=== PATIENT | female | born 1965 | race Caucasian/White ===

== ENCOUNTER 2018-10-27 19:54 | Inpatient (IN) ==
[2018-10-27 21:06] LABS: Immature Granulocytes % 0.3 % (0-4); Red Cell Distribution Width 18.3 % (11.5-14.5)
[2018-10-27 21:08] LABS: Basophils # 0.1 K/mcL (0.0-0.2); Basophils % 1.9 %; Eosinophils # 0.2 K/mcL (0.0-0.6); Eosinophils % 2.6 %; Hematocrit 35.7 % (35.3-44.9); Immature Platelets 5.5 % (1.1-6.1); Lymphocytes # 2.2 K/mcL (0.6-4.6); Lymphocytes % 35.5 %; Mean Corpuscular HGB Conc 30.8 g/dL (31.6-35.5); Mean Corpuscular Hemoglobin 27.4 pg (28.0-33.3); Mean Platelet Volume 9.5 fL (9.4-12.4); Monocytes # 0.4 K/mcL (0.0-1.3); Monocytes % 6.8 %; Neutrophils # 3.3 K/mcL (1.6-8.9); Red Blood Count 4.01 M/mcL (3.82-4.97); Segmented Neutrophils % 52.9 %; White Blood Count 6.2 K/mcL (4.3-11.1)
[2018-10-27] MEDS ORDERED: MVI, adult with vitamin K 10 ML in 0.9 % Sodium Chloride 1,000 ML IVC ONE (21:11)
[2018-10-27 21:14] LABS: Platelet Count 32 K/mcL (140-400)
[2018-10-27 21:25] LABS: BUN/Creatinine Ratio 22 (6-26); Blood Urea Nitrogen 11 mg/dL (6-20); Calcium 8.7 mg/dL (8.6-10.3); Carbon Dioxide 25 mEq/L (23-29); Chloride 106 mEq/L (98-107); Glucose 109 mg/dL (70-105); Osmolality,Calculated 298 (280-300); Sodium 144 mEq/L (136-145); eGFR For African Americans > 60 (> 60); eGFR For Non-African Americans > 60 (> 60)
[2018-10-27 22:06] LABS: Bilirubin,Urine Small (Negative); Blood,Urine Negative (Negative); Clarity,Urine Clear (Clear); Glucose,Urine (UA) Normal (Normal); Ketones,Urine 15 mg/dL (Negative); Leukocyte Esterase,Urine Trace (Negative); Nitrite,Urine Negative (Negative); Protein,Urine 30 mg/dL (Neg-Trace); Specific Gravity,Urine > 1.030 (1.010-1.025)
[2018-10-27 22:07] LABS: Amphetamine Screen,Urine Negative ng/mL (Cutoff=1000); Barbiturate Screen,Urine Negative ng/mL (Cutoff=200); Benzodiazepines Screen,Urine Negative ng/mL (Cutoff=200); Cannabinoid Screen,Urine Negative ng/mL (Cutoff = 50); Cocaine Screen,Urine Negative ng/mL (Cutoff= 300); Opiate Screen,Urine Negative ng/mL (Cutoff=300); Phencyclidine Screen,Urine Negative ng/mL (Cutoff=25)
[2018-10-27 22:08] LABS: Platelet Estimate Marked Decrease (Normal)
[2018-10-27 22:09] LABS: Bacteria,Urine Few per hpf (None-Few); Hyaline Casts,Urine None Seen per lpf (None-Few); RBC,Urine 0-3 per hpf (0-3); Squamous Epithelial Cell,Urine Many per lpf (None-Few); WBC,Urine 0-3 per hpf (0-3)
[2018-10-27 22:09] LABS: Anisocytosis 1+ (Not Present)
[2018-10-27 22:14] LABS: Color,Urine Amber (Yellow)
[2018-10-27 22:17] LABS: Acetaminophen < 10 mcg/mL (10-20); Ethanol 444 mg/dL (Less than 10); Salicylate < 2.5 mg/dL (15.0-30.0)
[2018-10-27 22:48] LABS: Mucus,Urine Moderate (Few)
[2018-10-27 22:51] LABS: Alanine Aminotransferase 78 Units/L (7-52); Albumin 3.7 g/dL (3.5-5.7); Albumin/Globulin Ratio 1.1 (1.1-2.2); Alkaline Phosphatase 131 Units/L (34-104); Aspartate Amino Transferase 292 Units/L (13-39); Bilirubin,Direct 1.5 mg/dL (0.0-0.2); Bilirubin,Indirect 1.6 mg/dL (0.0-1.2); Bilirubin,Total 3.1 mg/dL (0.3-1.0); Globulin 3.5 g/dL (2.4-3.5); Total Protein 7.2 g/dL (6.4-8.9)
--- NOTE | 2018-10-27 23:35 | Emergency Department Note ---
Disposition Clinical Impression: Wernicke encephalopathy, Hyperammonemia, Thrombocytopenia Elevated ETOH level Qualifiers: Blood alcohol level: 240 mg/100 ml or more Qualified Code(s): Y90.8 - Blood alcohol level of 240 mg/100 ml or more Disposition: Admitted As Inpatient Time of Disposition: 23:51 General Adult HPI - General Chief complaint: ED Weakness Stated complaint: low iron/anemic/weakness Time Seen by Provider: 10/27/18 20:33 Source: patient Mode of arrival: ambulatory Limitations: no limitations Nursing Notes Reviewed: Yes Vital Signs Reviewed: Yes - History of Present Illness HPI Narrative: 52F with PMHx of HTN and liver disease presents to the ED with her family for worsening confusion, falls, and changes in mood. She was called today by her family physician and told she had "low iron that needs replaced." The patient appears to be confused and asked that she does not know why she is in the emergency Department states she does not wish to be here. Upon review of labs done 3 days ago looks like her liver enzymes are elevated with her AST being 327 and her ALT being 80. She denies drinking more than one to 2 glasses of wine one to 2 times per week. Her family is concerned as her confusion and falls have been seeming to get worse. She denies fever, chills, chest pain, shortness of breath, abdominal pain, nausea and vomiting. Family states it seems as though she lists to her right side. Pain Scale: 6 - Related Data Allergies Allergy/AdvReac Type Severity Reaction Status Date / Time No Known Allergies Allergy Verified 10/27/18 20:17 All systems ED: reviewed and negative except as stated. Review of Systems: As Per HPI Constitutional: Denies: fever, chills, weakness Cardiovascular: Denies: chest pain, palpitations, dyspnea on exertion Respiratory: Denies: cough, dyspnea, wheezes Gastrointestinal: Denies: abdominal pain, nausea, vomiting, diarrhea Genitourinary: Denies: dysuria, hematuria Musculoskeletal: Denies: back pain, neck pain Neurological: Denies: headache Endocrine: Denies: fatigue Past Medical History - Past Medical History Attestation: Yes The following information was validated with the patient. Source: patient Medical history: Reports: hypertension, other Surgical history: Reports: other Psychiatric history: Reports: no psych history - Social History Smoking Status: Never smoker Smokeless Tobacco Status: No Alcohol use: Reports: occasionally Drug use: Reports: none Physical Exam - General Limitations: no limitations General appearance: alert, other (confusion) - Head Head exam: atraumatic, normocephalic - Eye Eye exam: Present: PERRL, EOMI, scleral icterus - Chest Chest inspection: Present: normal inspection. Absent: tenderness, rash - Respiratory Respiratory exam: Present: normal lung sounds bilaterally. Absent: wheezes - Cardiovascular Cardiovascular exam: Present: regular rate, normal rhythm - Abdominal Exam Abdominal exam: Present: soft, Non-Tender. Absent: distention, guarding, rebound, rigidity - Extremities Exam Extremities exam: Present: normal inspection. Absent: tenderness, pedal edema - Neurological Exam Neurological exam: Present: alert, other (generalized confusion and quick mood swings. Ataxia in bilateral heel-forbes test and dysdiadokinesia of both hands) - Psychiatric Psychiatric exam: Present: normal affect, normal mood - Skin Skin exam: Present: warm, dry, intact Course Vital Signs Temperature 98.8 F 10/27/18 20:17 Pulse Rate 93 10/27/18 20:17 Respiratory Rate 20 10/27/18 20:17 Blood Pressure 129/81 10/27/18 20:17 O2 Sat by Pulse Oximetry 94 10/27/18 20:17 Temperature 98.8 F 10/27/18 20:17 Pulse Rate 93 10/27/18 20:17 Respiratory Rate 20 10/27/18 20:17 Blood Pressure 129/81 10/27/18 20:17 O2 Sat by Pulse Oximetry 94 10/27/18 20:17 Oxygen Delivery Oxygen Delivery Room Air Medical Decision Making - [facility] Narrative Medical decision making narrative: Patient presents with generalized confusion and labs suggestive of alcoholic liver disease. We will repeat labs done 3 days ago and had pneumonia, ethanol level and a CT scan of the head to the patient's frequent falls and thrombocytopenia. 2214 - patient's labs are significant for thrombocytopenia of 32, ammonia of 57, and ethanol level of 444. Spoke with her family about the extremely elevated alcohol level and the need for admission for detox and treatment of her elevated ammonia and likely Wernicke's encephalopathy. Patient's family is agreeable with admission at this time. We have paged the admitting hospitalist [phone] - patient has been accepted by Dr. Pineda - Medical Records Medical records reviewed: Yes I reviewed the patient's medical records. - Lab Data Lab results reviewed: Yes I reviewed the patient's lab results. Result diagrams: 10/27/18 20:49 10/27/18 20:49 Lab Results 10/27/18 10/27/18 10/27/18 Range/Units 20:49 20:49 20:49 WBC 6.2 (4.3-11.1) K/mcL RBC 4.01 (3.82-4.97) M/mcL Hgb 11.0 L (11.5-15.4) g/dL Hct 35.7 (35.3-44.9) % MCV 89.0 (83.0-100.0) fL MCH 27.4 L (28.0-33.3) pg MCHC 30.8 L (31.6-35.5) g/dL RDW 18.3 H (11.5-14.5) % Plt Count 32 L (140-400) K/mcL MPV 9.5 (9.4-12.4) fL Immature Gran % 0.3 (0-4) % Seg Neutrophils % 52.9 % Lymphocytes % 35.5 % Monocytes % 6.8 % Eosinophils % 2.6 % Basophils % 1.9 % Neutrophils # 3.3 (1.6-8.9) K/mcL Lymphocytes # 2.2 (0.6-4.6) K/mcL Monocytes # 0.4 (0.0-1.3) K/mcL Eosinophils # 0.2 (0.0-0.6) K/mcL Basophils # 0.1 (0.0-0.2) K/mcL Platelet Estimate Marked Decrease L (Normal) Immature Plt Fraction 5.5 (1.1-6.1) % Anisocytosis 1+ A (Not Present) Sodium 144 (136-145) mEq/L Potassium 4.0 (3.5-5.1) mEq/L Chloride 106 (98-107) mEq/L Carbon Dioxide 25 (23-29) mEq/L BUN 11 (6-20) mg/dL Creatinine 0.49 L (0.60-1.20) mg/dL Est GFR ( Amer) > 60 (> 60) Est GFR (Non-Af Amer) > 60 (> 60) BUN/Creatinine Ratio 22 (6-26) Glucose 109 H (70-105) mg/dL Calculated Osmolality 298 (280-300) Calcium 8.7 (8.6-10.3) mg/dL Total Bilirubin 3.1 H (0.3-1.0) mg/dL Direct Bilirubin 1.5 H (0.0-0.2) mg/dL Indirect Bilirubin 1.6 H (0.0-1.2) mg/dL AST 292 H (13-39) Units/L ALT 78 H (7-52) Units/L Alkaline Phosphatase 131 H (34-104) Units/L Ammonia (16-53) mcmol/L Serum Total Protein 7.2 (6.4-8.9) g/dL Albumin 3.7 (3.5-5.7) g/dL Globulin 3.5 (2.4-3.5) g/dL Albumin/Globulin Ratio 1.1 (1.1-2.2) TSH (0.340-5.600) mcIU/mL Urine Color (Yellow) Urine Clarity (Clear) Urine pH (5.0-8.0) pH Units Ur Specific [place] (1.010-1.025) Urine Protein (Neg-Trace) mg/dL Urine Glucose (UA) (Normal) mg/dL Urine Ketones (Negative) mg/dL Urine Blood (Negative) Urine Nitrite (Negative) Urine Bilirubin (Negative) Urine Urobilinogen (Normal) mg/dL Ur Leukocyte Esterase (Negative) Urine Microscopic RBC (0-3) per hpf Urine Microscopic WBC (0-3) per hpf Ur Squamous Epith Cells (None-Few) per lpf Urine Bacteria (None-Few) per hpf Hyaline Casts (None-Few) per lpf Urine Mucus (Few) Salicylates (15.0-30.0) mg/dL Urine Opiates Screen (Khxmmz=299) ng/mL Ur Buprenorphine Scrn (Cutoff=5) ng/mL Acetaminophen (10-20) mcg/mL Ur Barbiturates Screen (Kflezr=162) ng/mL Ur Phencyclidine Scrn (Cutoff=25) ng/mL Ur Amphetamines Screen (Nxpbzd=5440) ng/mL U Benzodiazepines Scrn (Vdqjhw=046) ng/mL Urine Cocaine Screen (Cutoff= 300) ng/mL U Marijuana (THC) Screen (Cutoff = 50) ng/mL Ur Drug Screen Interp Ethyl Alcohol (Less than 10) mg/dL Blood Type A POSITIVE Antibody Screen NEGATIVE 10/27/18 10/27/18 10/27/18 Range/Units 21:05 21:06 21:29 WBC (4.3-11.1) K/mcL RBC (3.82-4.97) M/mcL Hgb (11.5-15.4) g/dL Hct (35.3-44.9) % MCV (83.0-100.0) fL MCH (28.0-33.3) pg MCHC (31.6-35.5) g/dL RDW (11.5-14.5) % Plt Count (140-400) K/mcL MPV (9.4-12.4) fL Immature Gran % (0-4) % Seg Neutrophils % % Lymphocytes % % Monocytes % % Eosinophils % % Basophils % % Neutrophils # (1.6-8.9) K/mcL Lymphocytes # (0.6-4.6) K/mcL Monocytes # (0.0-1.3) K/mcL Eosinophils # (0.0-0.6) K/mcL Basophils # (0.0-0.2) K/mcL Platelet Estimate (Normal) Immature Plt Fraction (1.1-6.1) % Anisocytosis (Not Present) Sodium (136-145) mEq/L Potassium (3.5-5.1) mEq/L Chloride (98-107) mEq/L Carbon Dioxide (23-29) mEq/L BUN (6-20) mg/dL Creatinine (0.60-1.20) mg/dL Est GFR ( Amer) (> 60) Est GFR (Non-Af Amer) (> 60) BUN/Creatinine Ratio (6-26) Glucose (70-105) mg/dL Calculated Osmolality (280-300) Calcium (8.6-10.3) mg/dL Total Bilirubin (0.3-1.0) mg/dL Direct Bilirubin (0.0-0.2) mg/dL Indirect Bilirubin (0.0-1.2) mg/dL AST (13-39) Units/L ALT (7-52) Units/L Alkaline Phosphatase (34-104) Units/L Ammonia (16-53) mcmol/L Serum Total Protein (6.4-8.9) g/dL Albumin (3.5-5.7) g/dL Globulin (2.4-3.5) g/dL Albumin/Globulin Ratio (1.1-2.2) TSH 1.798 (0.340-5.600) mcIU/mL Urine Color [place] A (Yellow) Urine Clarity Clear (Clear) Urine pH 6.0 (5.0-8.0) pH Units Ur Specific [place] > 1.030 H (1.010-1.025) Urine Protein 30 H (Neg-Trace) mg/dL Urine Glucose (UA) Normal (Normal) mg/dL Urine Ketones 15 H (Negative) mg/dL Urine Blood Negative (Negative) Urine Nitrite Negative (Negative) Urine Bilirubin Small H (Negative) Urine Urobilinogen 2.0 H (Normal) mg/dL Ur Leukocyte Esterase Trace H (Negative) Urine Microscopic RBC 0-3 (0-3) per hpf Urine Microscopic WBC 0-3 (0-3) per hpf Ur Squamous Epith Cells Many H (None-Few) per lpf Urine Bacteria Few (None-Few) per hpf Hyaline Casts None Seen (None-Few) per lpf Urine Mucus Moderate H (Few) Salicylates < 2.5 L (15.0-30.0) mg/dL Urine Opiates Screen (Zzqybx=182) ng/mL Ur Buprenorphine Scrn (Cutoff=5) ng/mL Acetaminophen < 10 L (10-20) mcg/mL Ur Barbiturates Screen (Kipesj=570) ng/mL Ur Phencyclidine Scrn (Cutoff=25) ng/mL Ur Amphetamines Screen (Ppadyb=0578) ng/mL U Benzodiazepines Scrn (Lboedz=450) ng/mL Urine Cocaine Screen (Cutoff= 300) ng/mL U Marijuana (THC) Screen (Cutoff = 50) ng/mL Ur Drug Screen Interp Ethyl Alcohol 444 H (Less than 10) mg/dL Blood Type Antibody Screen 10/27/18 10/27/18 Range/Units 21:29 21:41 WBC (4.3-11.1) K/mcL RBC (3.82-4.97) M/mcL Hgb (11.5-15.4) g/dL Hct (35.3-44.9) % MCV (83.0-100.0) fL MCH (28.0-33.3) pg MCHC (31.6-35.5) g/dL RDW (11.5-14.5) % Plt Count (140-400) K/mcL MPV (9.4-12.4) fL Immature Gran % (0-4) % Seg Neutrophils % % Lymphocytes % % Monocytes % % Eosinophils % % Basophils % % Neutrophils # (1.6-8.9) K/mcL Lymphocytes # (0.6-4.6) K/mcL Monocytes # (0.0-1.3) K/mcL Eosinophils # (0.0-0.6) K/mcL Basophils # (0.0-0.2) K/mcL Platelet Estimate (Normal) Immature Plt Fraction (1.1-6.1) % Anisocytosis (Not Present) Sodium (136-145) mEq/L Potassium (3.5-5.1) mEq/L Chloride (98-107) mEq/L Carbon Dioxide (23-29) mEq/L BUN (6-20) mg/dL Creatinine (0.60-1.20) mg/dL Est GFR ( Amer) (> 60) Est GFR (Non-Af Amer) (> 60) BUN/Creatinine Ratio (6-26) Glucose (70-105) mg/dL Calculated Osmolality (280-300) Calcium (8.6-10.3) mg/dL Total Bilirubin (0.3-1.0) mg/dL Direct Bilirubin (0.0-0.2) mg/dL Indirect Bilirubin (0.0-1.2) mg/dL AST (13-39) Units/L ALT (7-52) Units/L Alkaline Phosphatase (34-104) Units/L Ammonia 57 H (16-53) mcmol/L Serum Total Protein (6.4-8.9) g/dL Albumin (3.5-5.7) g/dL Globulin (2.4-3.5) g/dL Albumin/Globulin Ratio (1.1-2.2) TSH (0.340-5.600) mcIU/mL Urine Color (Yellow) Urine Clarity (Clear) Urine pH (5.0-8.0) pH Units Ur Specific [place] (1.010-1.025) Urine Protein (Neg-Trace) mg/dL Urine Glucose (UA) (Normal) mg/dL Urine Ketones (Negative) mg/dL Urine Blood (Negative) Urine Nitrite (Negative) Urine Bilirubin (Negative) Urine Urobilinogen (Normal) mg/dL Ur Leukocyte Esterase (Negative) Urine Microscopic RBC (0-3) per hpf Urine Microscopic WBC (0-3) per hpf Ur Squamous Epith Cells (None-Few) per lpf Urine Bacteria (None-Few) per hpf Hyaline Casts (None-Few) per lpf Urine Mucus (Few) Salicylates (15.0-30.0) mg/dL Urine Opiates Screen Negative (Bsqppu=861) ng/mL Ur Buprenorphine Scrn Negative (Cutoff=5) ng/mL Acetaminophen (10-20) mcg/mL Ur Barbiturates Screen Negative (Dyavyb=533) ng/mL Ur Phencyclidine Scrn Negative (Cutoff=25) ng/mL Ur Amphetamines Screen Negative (Tdzpre=6794) ng/mL U Benzodiazepines Scrn Negative (Xzqcjs=350) ng/mL Urine Cocaine Screen Negative (Cutoff= 300) ng/mL U Marijuana (THC) Screen Negative (Cutoff = 50) ng/mL Ur Drug Screen Interp See Below Ethyl Alcohol (Less than 10) mg/dL Blood Type Antibody Screen - Radiology Data Radiology results reviewed: Yes I reviewed the patient's radiology results. Attestation Statement - Attestation Attestation: I, Arnol Engle, examined this patient and my medical decision-making was reviewed with the STRATEGIC COMMUNICATIONS SPECIALIST/PA/Advanced Practice Nurse/Resident Physician. I agree with the documented findings, disposition and treatment plan as described except to the extent set forth below. 52-year-old female presents emergency Department with concerns of multiple falls, unsteadiness on her feet, confusion. Family brought the patient to the emergency department for further evaluation because they are concerned that something is "definitely wrong". Patient became very defensive and dramatic when asked why she was here for evaluation. Patient had labs taken 3 days ago which showed significantly elevated AST over ALT. patient has thrombocytopenia which is worse today compared to 3 days ago. Patient has mild anemia but not likely the cause of her symptoms. Patient had difficulty with dzty-hz-nuxc testing, alternative repetitive movements of hand, finger to nose testing. Patient is awake and alert and does answer questions appropriately however at times she seems to have confusion with her speech. Patient was asked directly how much she drank on a day-to-day basis. She states she did not drink today and that she only has about 2 glasses of wine on Sundays. She denied illicit drug use or tobacco use. Patient had a fall within the past 2 weeks, it is unclear if she was evaluated at that time or not. Patient has had increased bruising consistent with thrombocytopenia. Patient's EtOH level was significantly elevated today. Patient likely has Wernicke's encephalitis with her confabulation, confusion, difficulty with ambulation. Head CT was negative for acute fracture or intracranial hemorrhage. Patient and family were updated regarding CT results and laboratory results. He should not was agreeable to stay in the hospital for further care and evaluation. Patient platelets are significantly depleted. She had an episode of epistaxis yesterday but not today. No current bleeding today.
[2018-10-27 23:36] LABS: INR 1.9; Prothrombin Time 21.8 Seconds (9.4-12.1)
[2018-10-28] MEDS ORDERED: Ondansetron ODT 4 MG TAB.RAPDIS SL PRN (03:25)
[2018-10-28] MEDS ORDERED: Naloxone 0.4 MG/ML INJ IVP PRN (03:25)
--- NOTE | 2018-10-28 03:46 | Internal Med History&Physical ---
Date of Encounter: 10/28/18 Time of Encounter: 03:43 Internal Medicine - H&P: HPI Chief complaint: Weakness Admitted From: Home Plans for Post Hospital Care: Home History of present illness: Ms. 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 Her spouse and patient reported after the right arm surgery noticed weakeness and mentation changes intermittent no alleviating or exacerbating factor not associated with fever, chills, nausea, vomiting, chest pain, shortness of breath, or diarrhea. Patient reports drinking 4 bottles of wine daily/weekly(changed answer after the spouse looked at her with surprise) for years and hiding wine bottles in a way where none in the household would identified. Patient continues to carry out [employer] in her job. Patient has been laying on the couch sleeping for the past few days and the spouse tried to take the patient to her primary care provider but patient refused to go and labs were done and was found to have low platelet recommended patient to come to the ED. Patient denied ever having an EGD, colonoscopy, GI bleed or hemoptysis, strokes or DVTs. Patient reported epistaxis that resolved spontaneously. Reviewed patient's past medical, surgical, social and family history. CODE STATUS full code. Dvok-ae-nktq encounter occurred at 3 AM Past Med Surg Social Fam HX - Past Medical History Medical history: hypertension, other Additional medical history: anemia-iron deficiency Psychiatric history: no psych history - Past Surgical History Surgical History: other Additional surgical history: B CTR - Social History Smoking Status: Never smoker Smokeless Tobacco Status: No Alcohol use: occasionally Drug use: none Internal Medicine - H&P: Meds Allergy/AdvReac Type Severity Reaction Status Date / Time No Known Allergies Allergy Verified 10/27/18 20:17 All Systems PM: A 10-system review of systems was performed and is negative for pertinent findings except as documented above in the HPI. Review of systems: General: No unintentional weightloss, No fever Head: No headahce, No injury. Ears: No discharge, No earache Eyes: No drainage, No eye pain Mouth and Throat: No new ulcers, No pain Nose and Sinus: No new congestion, No pain, Respiratory: No cough, No sputum production, No dyspnea Cardiovascular: No chest pain, No palpitations. Gastrointestinal: No nausea, No vomiting. No abdominal pain. Genital Tract: No discharge, No pain Urinary Tract: No dysuria, No discharge. MSK: No new/worsening joint pain, No new/worsening muscle ache. Endocrine: No cold intolerance, No polyuria Psychological: No suicidal, No homocidal ideation. - Constitutional Vitals: Temp Pulse Resp BP Pulse Ox 98.8 F 104 19 134/73 97 10/27/18 20:17 10/27/18 23:50 10/27/18 23:50 10/27/18 23:50 10/27/18 23:50 Exam: General Appearance: Appearing as age, well-nourished in mild acute distress. Head: Atraumatic normocephalic Skin: Normal texture, normal turgor, warm, dry. No spider angioma Eyes: Conjunctivae not pale with no erythema, drainage, or ulcers. Anicteric. Neck: No Lymphadenopathy in the anterior/posterior cervical chain. No thyromegaly, masses or ulcers. Trachea midline. Heart: RRR, no murmurs. Capillary refill 3 seconds Lungs: No accessory muscle usage, lungs clear to auscultation bilaterally, no wheezes or crackles. Extremities: No pitting edema, No clubbing, No cyanosis. No palmar erythema Abdomen: Non-distended, normoactive bowel sounds. non-tender to palpation, hepatomegally. No guarding. Neuro: AOx3 with no new sensory loss or focal deficits. MSK: Strength 5/5 Upper extremity equal bilaterally. Strength 5/5 Lower extremity equal bilaterally Internal Med - H&P Results - Labs CBC & Chem 7: 10/28/18 04:13 10/28/18 04:13 Labs: Short CBC 10/27/18 Range/Units 20:49 WBC 6.2 (4.3-11.1) K/mcL Hgb 11.0 L (11.5-15.4) g/dL Hct 35.7 (35.3-44.9) % Plt Count 32 L (140-400) K/mcL Neutrophils # 3.3 (1.6-8.9) K/mcL BMP 10/27/18 20:49 Sodium 144 Potassium 4.0 Chloride 106 Carbon Dioxide 25 BUN 11 Creatinine 0.49 L Glucose 109 H Calcium 8.7 Liver Function 10/27/18 Range/Units 20:49 Total Bilirubin 3.1 H (0.3-1.0) mg/dL Direct Bilirubin 1.5 H (0.0-0.2) mg/dL AST 292 H (13-39) Units/L ALT 78 H (7-52) Units/L Alkaline Phosphatase 131 H (34-104) Units/L Albumin 3.7 (3.5-5.7) g/dL Urine 10/27/18 Range/Units 21:29 Urine Color [place] A (Yellow) Urine Clarity Clear (Clear) Urine pH 6.0 (5.0-8.0) pH Units Ur Specific [place] > 1.030 H (1.010-1.025) Urine Protein 30 H (Neg-Trace) mg/dL Urine Glucose (UA) Normal (Normal) mg/dL - Impressions ITS Impressions Head CT 10/27/18 22:29 IMPRESSION: No acute intracranial abnormality. D/ / Maggi Sesay Cha, MD / Maggi Sseay Cha, MD Interpreting Provider: Maggi Sesay Cha, MD Chest X-Ray 10/27/18 23:22 IMPRESSION: Shallow inspiratory effort with bronchovascular crowding and basilar atelectasis. D/ / Michi Fang / Michi Fang Interpreting Provider: Michi Fang - Summary of Assessment and Plan Summary of Assessment and Plan: 1.Transient encephalopathy: Secondary to acute on chronic ETOH intoxication. CT head No acute process. Labs reviewed. Takes daily multivitamin Resolved at the time patient was seen. IVF and substance abuse 2.Thrombocytopenia: secondary to liver disease. No signs of bleeding at this time. Typed and screened. Continue to monitor. awaiting panel and transfuse plt with recheck. goal >30. Needs outpatient GI follow up 3.Anemia Normocytic: Ordered panel and hemeoccult. 4.Liver Disease: Likely ETOH hepatitis. Hepatitis panel, US abdomen pending. Meld Score 11, Child bedolla class B. Needs outpatient GI follow up 5.Grade 3 systlic murmur: New onset. Echocardiogram. DVT: Heparin drip Disposition: Likely less than 2 standard - Time Spent With Patient Total time spent is greater than 37 minutes 50% in coordination of care (as documented) at patient's floor/unit and/or counseling patient: Greater than 35 minutes
[2018-10-28 04:45] LABS: Basophils # 0.1 K/mcL (0.0-0.2); Basophils % 1.6 %; Eosinophils # 0.1 K/mcL (0.0-0.6); Eosinophils % 2.9 %; Hematocrit 30.4 % (35.3-44.9); Hemoglobin 9.4 g/dL (11.5-15.4); Immature Granulocytes % 0.2 % (0-4); Immature Platelets 6.2 % (1.1-6.1); Lymphocytes # 1.5 K/mcL (0.6-4.6); Lymphocytes % 33.3 %; Mean Corpuscular HGB Conc 30.9 g/dL (31.6-35.5); Mean Corpuscular Hemoglobin 27.8 pg (28.0-33.3); Mean Corpuscular Volume 89.9 fL (83.0-100.0); Monocytes # 0.3 K/mcL (0.0-1.3); Monocytes % 7.2 %; Neutrophils # 2.4 K/mcL (1.6-8.9); Red Blood Count 3.38 M/mcL (3.82-4.97); Red Cell Distribution Width 18.3 % (11.5-14.5); Segmented Neutrophils % 54.8 %; White Blood Count 4.4 K/mcL (4.3-11.1)
[2018-10-28 04:56] LABS: Platelet Count 23 K/mcL (140-400)
[2018-10-28 04:59] LABS: Alanine Aminotransferase 65 Units/L (7-52); Albumin 3.2 g/dL (3.5-5.7); Albumin/Globulin Ratio 1.1 (1.1-2.2); Alkaline Phosphatase 106 Units/L (34-104); Aspartate Amino Transferase 250 Units/L (13-39); BUN/Creatinine Ratio 30 (6-26); Bilirubin,Total 2.9 mg/dL (0.3-1.0); Blood Urea Nitrogen 10 mg/dL (6-20); Calcium 7.5 mg/dL (8.6-10.3); Carbon Dioxide 24 mEq/L (23-29); Chloride 109 mEq/L (98-107); Chol/HDL Ratio 11.5 (0-4.9); Cholesterol 92 mg/dL (< 200); Ethanol 326 mg/dL (Less than 10); Globulin 2.9 g/dL (2.4-3.5); Glucose 82 mg/dL (70-105); HDL Cholesterol 8 mg/dL (40-59); LDL Cholesterol,Calculated 67 mg/dL (0-99); Magnesium 1.8 mg/dL (1.6-2.6); Osmolality,Calculated 294 (280-300); Phosphorous 3.7 mg/dL (2.7-4.5); Potassium 3.8 mEq/L (3.5-5.1); Sodium 143 mEq/L (136-145); Total Protein 6.1 g/dL (6.4-8.9); Triglycerides 84 mg/dL (< 150); eGFR For African Americans > 60 (> 60); eGFR For Non-African Americans > 60 (> 60)
[2018-10-28 05:00] LABS: % Iron Saturation 6 % (15-50); Iron 24 mcg/dL (50-170); Lactate Dehydrogenase 241 Units/L (140-271); Transferrin 266 mg/dL (203-362)
[2018-10-28 05:02] LABS: Troponin I < 0.03 ng/mL (< 0.04)
[2018-10-28 05:20] LABS: Ferritin 33 ng/mL (10-120)
[2018-10-28 05:23] LABS: Immature Reticulocyte % 21.2 % (11.0-38.0); Retculocyte # 0.06 M/mcL (0.05-0.10); Reticulocyte % 1.8 % (1.6-2.8)
[2018-10-28] MEDS ORDERED: 0.9 % Sodium Chloride 250 ML IVC SCH (05:30)
[2018-10-28] MEDS ORDERED: *HR* Heparin 5,000 UNIT/ML VIAL SQ SCH (06:00)
[2018-10-28 06:43] LABS: Folate > 22.3 ng/mL (3.0-16.0); Vitamin B12 1407 pg/mL (250-1100)
[2018-10-28 07:00] LABS: Hepatitis B Surface Antigen Nonreactive (Nonreactive)
[2018-10-28 07:29] LABS: Hepatitis B Core IgM Nonreactive (Nonreactive); Hepatitis C Virus Antibody Nonreactive (Nonreactive)
[2018-10-28 07:31] LABS: Hepatitis A Antibody IgM Nonreactive (Nonreactive)
[2018-10-28] MEDS ORDERED: 0.9 % Sodium Chloride 250 ML ONE (08:09)
--- NOTE | 2018-10-28 08:22 | Event Note ---
Date of Encounter: 10/28/18 Time of Encounter: 09:20 Ms Caldwell was admitted for acute encephalopathy found to be related to etoh intoxication. Her family was unaware of her etoh abuse until last night. She was found to have etoh hepatitis, significant thrombocytopenia, suspected liver disease and anemia pt asleep, at bedside. She awakes to name, permission to speak with her present. She dodges answering questions about her last drink and confirming if she has ever withdrawn, or last time she went a day without drinking. He is very concerned and stunned and answers all questions to best of his knowledge. They are aware of bleeding risks, need to monitor blood counts and neuro status today. Aware of likelihood she with withdraw and that this can be life threatening. Aware agapito if plts cont to drop she may require transfer due to risk of spontaneous IC hemorrhage at specific plt levels. Discussed plan of care today and pt verbalized good understanding. gen- alert, awake,appears stated age eyes- pupils equal round, no scleral icterus cv- reg rate and rhythm, normal s1,s2, + SM, no le edema, no jvd lungs- ctabl abd- soft, non tender, non distended, + bs skin- no jaundice or pallor, ecchymotic areas bl arms, no hematoma neuro- AAOx3, CN grossly intact, strength intact throughout and equal Acute Encephalopathy 2/[address] negative on admit -cont ciwa, banana bag, neuro checks -SW consult in [facility] Thrombocytopenia, chronicity , suspected 2/2 liver disease Plt count 23 - serial hgbs, neuro checks, currently receiving 1 unit plts, fu level later today -liver work up as below -fall precautions, up w assist only, educated to warning signs of bleeding and will contact staff immediately if any -low threshold repeat CT head if any neuro changes Alcoholic Hepatitis Rule out chronic disease process as well Hepatitis panel non reactive -RUQ US pending, suspect chronci liver disease given her INR and low protein Etoh Intoxication, eoth level 400s --> 300s Etoh Abuse v Dependence -CIWA, supplements, monitor lytes, tele New Systolic Heart murmur- echo pending Normocytic Anemia, chronicity unknown, in setting of thrombocytopenia LDH normal , haptoglobin pending -monitor hgb closely w serial checks, thombocytopenia tx as above, she has no active bleeding or s/s of unvisualized bleeding at this time -fobt pending, low iron, high B12 and Folate vte ppx scds only, stop hep sub q as ordered on admit, monitor for bruising w scds
[2018-10-28] MEDS ORDERED: *HR* LORazepam 2 MG/ML VIAL IVP PRN (08:30)
[2018-10-28] MEDS ORDERED: Thiamine (B-1) 100 MG TABLET PO SCH (09:00)
[2018-10-28] MEDS ORDERED: Folic Acid 1 MG TABLET PO SCH (09:00)
[2018-10-28] MEDS ORDERED: Vitamin B Complex/Vit C/Vit E 1 EACH TABLET PO SCH (09:00)
[2018-10-28 09:48] LABS: Hematocrit 29.7 % (35.3-44.9); Hemoglobin 9.2 g/dL (11.5-15.4)
[2018-10-28 14:46] LABS: Hematocrit 30.4 % (35.3-44.9); Hemoglobin 9.4 g/dL (11.5-15.4)
--- NOTE | 2018-10-28 15:17 | Electrocardiograph Report ---
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
[2018-10-28] MEDS: Lactulose Oral Soln 20 GM/30 ML UDC PO SCH (16:19)
[2018-10-28] MEDS: Thiamine (B-1) 100 MG, Folic Acid 1 MG, MVI, adult with vitamin K 10 ML in 0.9 % Sodi... IVPB SCH (16:22)
[2018-10-28] MEDS: *HR* LORazepam 2 MG/ML VIAL IVP PRN (20:01)
[2018-10-28 20:49] LABS: Hemoglobin 9.3 g/dL (11.5-15.4)
[2018-10-29] MEDS: *HR* LORazepam 2 MG/ML VIAL IVP PRN ×7 (00:37→22:18)
[2018-10-29 01:43] LABS: Immature Granulocytes % 0.3 % (0-4)
[2018-10-29 01:45] LABS: Basophils # 0.1 K/mcL (0.0-0.2); Basophils % 1.5 %; Eosinophils # 0.1 K/mcL (0.0-0.6); Eosinophils % 3.5 %; Hematocrit 30.8 % (35.3-44.9); Hemoglobin 9.6 g/dL (11.5-15.4); Immature Platelets 3.7 % (1.1-6.1); Lymphocytes # 0.9 K/mcL (0.6-4.6); Lymphocytes % 25.7 %; Mean Corpuscular HGB Conc 31.2 g/dL (31.6-35.5); Mean Corpuscular Hemoglobin 27.4 pg (28.0-33.3); Mean Platelet Volume 10.9 fL (9.4-12.4); Monocytes # 0.3 K/mcL (0.0-1.3); Monocytes % 9.1 %; Red Cell Distribution Width 18.4 % (11.5-14.5); Segmented Neutrophils % 59.9 %; White Blood Count 3.4 K/mcL (4.3-11.1)
[2018-10-29 01:47] LABS: Platelet Count 30 K/mcL (140-400)
[2018-10-29] MEDS ORDERED: 0.9 % Sodium Chloride 250 ML IVC SCH (02:00)
[2018-10-29 02:01] LABS: Alanine Aminotransferase 70 Units/L (7-52); Albumin 3.1 g/dL (3.5-5.7); Alkaline Phosphatase 110 Units/L (34-104); Aspartate Amino Transferase 291 Units/L (13-39); BUN/Creatinine Ratio 17 (6-26); Bilirubin,Direct 1.6 mg/dL (0.0-0.2); Bilirubin,Indirect 2.2 mg/dL (0.0-1.2); Bilirubin,Total 3.8 mg/dL (0.3-1.0); Blood Urea Nitrogen 8 mg/dL (6-20); Carbon Dioxide 25 mEq/L (23-29); Chloride 103 mEq/L (98-107); Glucose 139 mg/dL (70-105); Magnesium 1.6 mg/dL (1.6-2.6); Osmolality,Calculated 283 (280-300); Potassium 3.7 mEq/L (3.5-5.1); Sodium 136 mEq/L (136-145); Total Protein 6.1 g/dL (6.4-8.9); eGFR For African Americans > 60 (> 60); eGFR For Non-African Americans > 60 (> 60)
[2018-10-29 06:13] LABS: Immature Granulocytes % 0.6 % (0-4); Red Cell Distribution Width 18.2 % (11.5-14.5)
[2018-10-29 06:15] LABS: Basophils # 0.1 K/mcL (0.0-0.2); Basophils % 1.5 %; Eosinophils # 0.1 K/mcL (0.0-0.6); Eosinophils % 4.1 %; Hematocrit 29.8 % (35.3-44.9); Hemoglobin 9.3 g/dL (11.5-15.4); Lymphocytes # 0.8 K/mcL (0.6-4.6); Lymphocytes % 24.5 %; Mean Corpuscular HGB Conc 31.2 g/dL (31.6-35.5); Mean Corpuscular Hemoglobin 27.7 pg (28.0-33.3); Mean Corpuscular Volume 88.7 fL (83.0-100.0); Mean Platelet Volume 9.9 fL (9.4-12.4); Monocytes # 0.3 K/mcL (0.0-1.3); Monocytes % 7.9 %; Neutrophils # 2.1 K/mcL (1.6-8.9); Red Blood Count 3.36 M/mcL (3.82-4.97); Segmented Neutrophils % 61.4 %; White Blood Count 3.4 K/mcL (4.3-11.1)
[2018-10-29 06:20] LABS: Platelet Count 39 K/mcL (140-400)
--- NOTE | 2018-10-29 07:42 | Internal Med Progress Note ---
Hospitalist Progress Note - Encounter Date of Encounter: 10/29/18 Time of Encounter: 09:10 - Subjective Interval History: awake, no family present, RN at bedside. She is having tremulousness and nausea today. receiving ativan this morning. denies cp,palpitations. denies evidence of bleeding. no confusion or headache. discussed treatment plan today. she d isclosed to me privately that she and share a bottle of wine daily and then she drinks a bottle herself each day as well. In last two weeks she started carrying a flask of vodka and is drinking 1 flask daily. - Exam Vitals: Temp Pulse Resp BP Pulse Ox 98.5 F 102 17 147/84 97 10/29/18 06:56 10/29/18 06:56 10/29/18 06:56 10/29/18 06:56 10/29/18 06:56 Exam: gen- alert, awake,appears stated age eyes- pupils equal round, no scleral icterus cv- tachyrate and reg rhythm, normal s1,s2, + SM, no le edema lungs- ctabl, normal resp effort on room air abd- soft, non tender, non distended, + bs, no appreciable HM skin- no jaundice or pallor, ecchymotic areas bl arms, no hematoma neuro- AAOx3, CN grossly intact, BL UE tremors - Assessment and Plan (1) Alcohol intoxication Current Visit: Yes Status: Resolved (2) Alcohol withdrawal Current Visit: Yes Status: Acute (3) Alcohol dependence Current Visit: Yes Status: Chronic (4) Pancytopenia Current Visit: Yes Status: Acute (5) Alcoholic hepatic failure without coma Current Visit: Yes Status: Acute (6) Cirrhosis of liver Current Visit: Yes Status: Chronic (7) Iron deficiency Current Visit: Yes Status: Chronic (8) Anemia Current Visit: Yes Status: Chronic (9) Thrombocytopenia Current Visit: Yes Status: Acute - Summary of Assessment and Plan Summary of Assessment and Plan: Acute Encephalopathy 2/2 Etoh Intoxication, which has now resolved CT negative on admit -cont ciwa, banana bag w transition to oral supps, neuro checks -SW consult in place Thrombocytopenia, chronicity uk, suspected 2/2 liver disease Plt count 30s s/p plt transfusion x2 GOAL is >20 and no need for further transfusions unless <20, pre procedure or with active bleeding as per Heme - neuro checks, appreciate Heme input -liver work up as below -fall precautions, up w assist only, educated to warning signs of bleeding and will contact staff immediately if any -low threshold repeat CT head if any neuro changes Alcoholic Hepatitis Liver Cirrhosis without Coma Hepatitis panel non reactive Liver US w cirrhotic liver, possibly underlying cirrhosis, no focal lesions, gb wall thickened likely 2/2 liver disease or hypoproteinemia, no cholecystitis LFTs stable yesterday, uptrending today, INR 2.1 -GI is consulted for when they return in morning (tuesday), started lactulose and will hold uptitrating given ammonia normal and in active etoh withdrawal do not want hypokalemia related to diarrhea Etoh Intoxication, resolved Now Etoh Withdrawal, thus far uncomplicated Etoh Abuse v Dependence -CIWA and receiving ativan, supplements, repleting lytes to goal daily prn, tele New Systolic Heart murmur Echo normal EF and diastolic funciton, AV not well visualized, Mild aortic sclerosis by doppler -fu with pcp outpt Pancytopenia Normocytic Anemia, chronicity unknown Hgb stable -appreciate heme input, hgb checks now daily or as needed, thombocytopenia tx as above, she has no active bleeding or s/s of unvisualized bleeding at this time -cont iron supp vte ppx scds only, stop hep sub q as ordered on admit, monitor for bruising w scds Internal Medicine: Result - Labs CBC & Chem 7: 10/29/18 10:17 10/29/18 01:30 Labs: Short CBC 10/28/18 10/28/18 10/28/18 Range/Units 09:35 14:35 14:35 WBC (4.3-11.1) K/mcL Hgb 9.2 L 9.4 L (11.5-15.4) g/dL Hct 29.7 L 30.4 L (35.3-44.9) % Plt Count 35 L D (140-400) K/mcL Neutrophils # (1.6-8.9) K/mcL 10/28/18 10/28/18 10/29/18 Range/Units 20:32 20:32 01:30 WBC 3.4 L (4.3-11.1) K/mcL Hgb 9.3 L 9.6 L (11.5-15.4) g/dL Hct 30.0 L 30.8 L (35.3-44.9) % Plt Count 33 L 30 L* (140-400) K/mcL Neutrophils # 2.0 (1.6-8.9) K/mcL 10/29/18 Range/Units 05:48 WBC 3.4 L (4.3-11.1) K/mcL Hgb 9.3 L (11.5-15.4) g/dL Hct 29.8 L (35.3-44.9) % Plt Count 39 L (140-400) K/mcL Neutrophils # 2.1 (1.6-8.9) K/mcL BMP 10/29/18 01:30 Sodium 136 Potassium 3.7 Chloride 103 Carbon Dioxide 25 BUN 8 Creatinine 0.47 L Glucose 139 H Calcium 8.0 L Cardiac Enzymes 10/28/18 Range/Units 09:35 Troponin I < 0.03 (< 0.04) ng/mL Liver Function 10/29/18 Range/Units 01:30 Total Bilirubin 3.8 H (0.3-1.0) mg/dL Direct Bilirubin 1.6 H (0.0-0.2) mg/dL AST 291 H (13-39) Units/L ALT 70 H (7-52) Units/L Alkaline Phosphatase 110 H (34-104) Units/L Albumin 3.1 L (3.5-5.7) g/dL - ABG Interpretation ABG results: PT/INR, D-dimer PT 21.8 Seconds (9.4-12.1) H 10/27/18 Unknown - Impressions Impressions Liver Ultrasound 10/28/18 11:52 IMPRESSION: 1. Cirrhotic liver potentially with underlying cirrhosis. No visualized focal lesion. LI-RADS category US-1, visualization score A 2. Edematous gallbladder wall thickening most likely due to adjacent liver disease or a systemic process such as hypoproteinemia. No additional secondary findings to suggest cholecystitis. D/ / Domo Talley MD / Domo Talley MD Interpreting Provider: Domo Talley MD Echocardiogram 10/28/18 12:06 Impressions: LVEF 70%. Normal LV chamber size, wall thickness and function. Normal left ventricular diastolic function. Normal right ventricular structure and function. Aortic valve not well visualized. Mild aortic sclerosis suggested by Doppler. Mean gradient 11 mmHg. No evidence of pulmonary hypertension. Left Ventricular Wall Motion: Rest Echo Findings All wall segments showed normal motion. Findings: Study Quality * Technically adequate exam. ECG Findings * Normal sinus rhythm. Left Ventricle * LVEF 70%. * Normal LV chamber size, wall thickness and function. * Normal left ventricular diastolic function. Right Ventricle * Normal right ventricular structure and function. Left Atrium * Normal left atrial size. Right Atrium * Normal right atrial size. Interatrial Septum * Interatrial septum not well evaluated. Aortic Valve * Aortic valve not well visualized. * No aortic regurgitation. * Mild aortic sclerosis suggested by Doppler. Mean gradient 11 mmHg. Mitral Valve * Normal mitral valve structure and function. * No mitral regurgitation. * No mitral stenosis. Tricuspid Valve * Normal tricuspid valve structure and function. * Trace tricuspid regurgitation. * No evidence of pulmonary hypertension. Pulmonic Valve * Normal pulmonic valve structure and function. * No pulmonic regurgitation. Aorta * Normally sized aortic root. Pericardium * The pericardium appears normal. IVC * Normal IVC dimensions and inspiratory collapse. Pulmonary Artery * Normal visualized portions of the main pulmonary artery. Consult Discharge Plan - Plan Referrals: Omi Cartagena MD [Primary Care Provider] - (1) Alcohol intoxication Qualifiers: Complication of substance-induced condition: uncomplicated Qualified Code(s): F10.920 - Alcohol use, unspecified with intoxication, uncomplicated (2) Alcohol withdrawal Qualifiers: Complication of substance-induced condition: with unspecified complication Qualified Code(s): F10.239 - Alcohol dependence with withdrawal, unspecified (3) Alcohol dependence Qualifiers: Substance use status: in withdrawal Complication of substance-induced condition: with unspecified complication Qualified Code(s): F10.239 - Alcohol dependence with withdrawal, unspecified (6) Cirrhosis of liver Qualifiers: Hepatic cirrhosis type: unspecified hepatic cirrhosis Ascites presence: without ascites Qualified Code(s): K74.60 - Unspecified cirrhosis of liver (8) Anemia Qualifiers: Anemia type: iron deficiency Iron deficiency anemia type: unspecified iron deficiency Qualified Code(s): D50.9 - Iron deficiency anemia, unspecified
[2018-10-29] MEDS: Lactulose Oral Soln 20 GM/30 ML UDC PO SCH (08:02)
[2018-10-29 08:23] LABS: INR 2.1; Prothrombin Time 24.1 Seconds (9.4-12.1)
[2018-10-29 08:53] LABS: Bilirubin,Urine Negative (Negative); Blood,Urine Negative (Negative); Clarity,Urine Clear (Clear); Color,Urine Dark Yellow (Yellow); Glucose,Urine (UA) Normal (Normal); Ketones,Urine 80 mg/dL (Negative); Leukocyte Esterase,Urine Negative (Negative); Nitrite,Urine Negative (Negative); Protein,Urine Negative (Neg-Trace); Specific Gravity,Urine 1.018 (1.010-1.025)
--- NOTE | 2018-10-29 09:17 | Oncology Inp Consult Note ---
Date of Encounter: 10/29/18 Time of Encounter: 09:00 Assessment and Plan (1) Thrombocytopenia Status: Acute Assessment and plan: From cirrhosis, portal hypertension, likely alcohol related. Ferritin low--on oral iron supplementation. GI for scope, consulted already for cirrhosis PS review.Check labs transfuse plt prior to procedures or if she has active bleeding. Currently she does not need plt transfusion with safe plt counts of over 20k. Coagulopathy, baseline elevated INR, PTT. Correct if Hgb drops/signs of bleeding. Continue folate, thiamine, iron supplementation. B12 elevated. Consider CT abd with contrast. Plan d.w patient bedside - Data of Consult Requesting Physician: Trisha Valero Primary Care Provider: Omi Cartagena MD - Consult Narrative Reason for consult: low blood counts History of present illness: 52-year-old female with medical history significant for hypertension, anemia, hospitalized with confusion episodes of falls, found to have elevated alcohol levels, patient admits to drinking alcohol daily with prior abdominal ultrasound in 2017 showed cirrhosis, she had repeat liver ultrasound October 2018 that shown findings consistent with cirrhosis as well. Patient reports she gets tremors if she does not drink alcohol. She is abdominal discomfort but denies any prior history of hematemesis. She denies melena or hematochezia. She is on and off epistaxis. Lab work showed pancytopenia per attending had received a platelet transfusion currently platelet is a 39,000. Past Med Surg Social Fam HX - Past Medical History Medical history: hypertension, other Additional medical history: anemia-iron deficiency Psychiatric history: no psych history - Past Surgical History Surgical History: other Additional surgical history: B CTR - Social History Smoking Status: Never smoker Smokeless Tobacco Status: No Alcohol use: occasionally Drug use: none Medications and Allergies No Known Home Drugs 10/28/18 [History] Allergy/AdvReac Type Severity Reaction Status Date / Time No Known Allergies Allergy Verified 10/28/18 16:36 Additional comments: falls, wkness Additional comments: epistaxis on and off Cardiovascular: Present: rapid heart rate Additional comments: no pain, hemoptysis Additional comments: denies ann, hematochezia Additional comments: no joint problems, deformities Neurological: Present: disequilibrium, frequent falls Additional comments: low blood Oncology - Exam - Constitutional General appearance: no acute distress - Head Head exam: Present: atraumatic, normal inspection - Eye Eye exam: Present: sclera anicteric - ENT ENT exam: Present: mucous membranes dry, normal exam - Neck Neck exam: Present: full ROM - Respiratory Respiratory exam: Present: CTAB - Cardiovascular Cardiovascular exam: Present: +S1, +S2 - GI/Abdominal GI/Abdominal exam: Present: normal bowel sounds, soft - Extremities Exam Extremities exam: Present: normal inspection Additional comments: no edema, - Neurological Exam Neurological exam: Present: alert, CN II-XII intact, oriented X3 - Psychiatric Psychiatric exam: Present: normal affect - Skin Skin exam: Present: dry, warm Oncology Inpatient Results Ferritin 33, Hgb ~9g Plt ~39. US liver findings as i HPI Consult Discharge Plan - Plan Referrals: Omi Cartagena MD [Primary Care Provider] - Inpatient Charges Provider: Dr. José Miguel Chacon Consult - Inpatient: [id number]
[2018-10-29 09:28] LABS: Amphetamine Screen,Urine Negative ng/mL (Cutoff=1000); Barbiturate Screen,Urine Negative ng/mL (Cutoff=200); Benzodiazepines Screen,Urine Negative ng/mL (Cutoff=200); Cannabinoid Screen,Urine Negative ng/mL (Cutoff = 50); Cocaine Screen,Urine Negative ng/mL (Cutoff= 300); Opiate Screen,Urine Negative ng/mL (Cutoff=300); Phencyclidine Screen,Urine Negative ng/mL (Cutoff=25)
[2018-10-29] MEDS ORDERED: Ondansetron 4 MG/2 ML VIAL IVP PRN (13:51)
[2018-10-29] MEDS: Thiamine (B-1) 100 MG, Folic Acid 1 MG, MVI, adult with vitamin K 10 ML in 0.9 % Sodi... IVPB SCH (17:03)
[2018-10-30 03:54] LABS: Basophils % 1.3 %; Immature Granulocytes % 0.5 % (0-4); Mean Corpuscular Hemoglobin 27.7 pg (28.0-33.3)
[2018-10-30 03:57] LABS: Basophils # 0.1 K/mcL (0.0-0.2); Eosinophils # 0.2 K/mcL (0.0-0.6); Eosinophils % 5.5 %; Hemoglobin 9.6 g/dL (11.5-15.4); Lymphocytes # 0.8 K/mcL (0.6-4.6); Lymphocytes % 20.7 %; Mean Corpuscular Volume 89.6 fL (83.0-100.0); Mean Platelet Volume 10.3 fL (9.4-12.4); Monocytes # 0.3 K/mcL (0.0-1.3); Monocytes % 7.1 %; Neutrophils # 2.6 K/mcL (1.6-8.9); Red Blood Count 3.46 M/mcL (3.82-4.97); Red Cell Distribution Width 18.1 % (11.5-14.5); Segmented Neutrophils % 64.9 %
[2018-10-30 04:02] LABS: INR 2.4; Prothrombin Time 27.7 Seconds (9.4-12.1)
[2018-10-30 04:11] LABS: Alanine Aminotransferase 73 Units/L (7-52); Albumin 3.2 g/dL (3.5-5.7); Albumin/Globulin Ratio 1.1 (1.1-2.2); Alkaline Phosphatase 123 Units/L (34-104); Aspartate Amino Transferase 286 Units/L (13-39); BUN/Creatinine Ratio 10 (6-26); Bilirubin,Total 6.3 mg/dL (0.3-1.0); Blood Urea Nitrogen 6 mg/dL (6-20); Calcium 8.4 mg/dL (8.6-10.3); Carbon Dioxide 26 mEq/L (23-29); Chloride 103 mEq/L (98-107); Glucose 124 mg/dL (70-105); Magnesium 1.7 mg/dL (1.6-2.6); Osmolality,Calculated 277 (280-300); Potassium 3.5 mEq/L (3.5-5.1); Sodium 134 mEq/L (136-145); Total Protein 6.2 g/dL (6.4-8.9); eGFR For African Americans > 60 (> 60); eGFR For Non-African Americans > 60 (> 60)
[2018-10-30 04:22] LABS: Platelet Count 36 K/mcL (140-400)
--- NOTE | 2018-10-30 08:15 | Internal Med Progress Note ---
Hospitalist Progress Note - Encounter Date of Encounter: 10/30/18 - Exam Vitals: Temp Pulse Resp BP Pulse Ox 98.5 F 91 15 139/89 95 10/30/18 06:35 10/30/18 06:35 10/30/18 06:35 10/30/18 06:35 10/30/18 06:35 - Time Spent with Patient Total time spent is greater than 50% in coordination of care (as documented) at patient's floor/unit and/or counseling patient: Internal Medicine: Result - Labs CBC & Chem 7: 10/30/18 03:22 10/30/18 03:22 Labs: Short CBC 10/29/18 10/29/18 10/30/18 Range/Units 10:17 18:46 03:22 WBC 4.0 L (4.3-11.1) K/mcL Hgb 9.6 L (11.5-15.4) g/dL Hct 31.0 L (35.3-44.9) % Plt Count 47 L 41 L 36 L (140-400) K/mcL Neutrophils # 2.6 (1.6-8.9) K/mcL BMP 10/30/18 03:22 Sodium 134 L Potassium 3.5 Chloride 103 Carbon Dioxide 26 BUN 6 Creatinine 0.59 L Glucose 124 H Calcium 8.4 L Liver Function 10/30/18 Range/Units 03:22 Total Bilirubin 6.3 H (0.3-1.0) mg/dL AST 286 H (13-39) Units/L ALT 73 H (7-52) Units/L Alkaline Phosphatase 123 H (34-104) Units/L Albumin 3.2 L (3.5-5.7) g/dL Urine 10/29/18 Range/Units 08:14 Urine Color Dark Yellow (Yellow) Urine Clarity Clear (Clear) Urine pH 6.0 (5.0-8.0) pH Units Ur Specific Marshall 1.018 (1.010-1.025) Urine Protein Negative (Neg-Trace) mg/dL Urine Glucose (UA) Normal (Normal) mg/dL - ABG Interpretation ABG results: PT/INR, D-dimer PT 27.7 Seconds (9.4-12.1) H 10/30/18 03:22 Consult Discharge Plan - Plan Referrals: Omi Cartagena MD [Primary Care Provider] -
--- NOTE | 2018-10-30 08:54 | Gastroenterology Consult Note ---
<Nitin Mendiola - Last Filed: 10/30/18 16:12> Date of Encounter: 10/30/18 Time of Encounter: 09:02 - Assessment and plan (1) Thrombocytopenia Current Visit: Yes Status: Acute Assessment and plan: Likely due to cirrhotic liver potentially with underlying cirrhosis Patient had platelet count is 32 on admission, currently she is s/p platelet transfuion *2 and her most recent platelet count is 36 - (2) Cirrhosis of liver without ascites Current Visit: Yes Status: Acute Assessment and plan: -likely due to Hx alcohol intake. Apparently told the mother tending so that she and her share a bottle of wine daily and then she drinks a bottle herself each day as well. In the last 2 weeks she started caring a flask of vodka and is drinking 1 flask daily. -Patient's liver ultrasound showed a cirrhotic liver potentially with underlying cirrhosis, no focal lesions. Gallbladder wall thickened likely 2/2 hypoprorinemia and thrombocytopenia. Her MELD score on admission was 18 - Patient's LFTs were uptrendin yesterday, downtrending today with AST: 286, ALT: 73, Alk Phos: 123. total bilirubin: 6.3 -Currently on day 2 of lactulose (10g), ammonia levels currently normal at 49 (3) Alcohol intoxication Current Visit: Yes Status: Resolved Qualifiers: Complication of substance-induced condition: uncomplicated Qualified Code(s): F10.920 - Alcohol use, unspecified with intoxication, uncomplicated (4) Pancytopenia Current Visit: Yes Status: Acute (5) Alcoholic hepatitis Current Visit: Yes Status: Suspected Assessment and plan: -Patient presented to the ED with the elevated transaminases with the [id number], ALT: 78 -Likely due to history of alcohol abuse -Is currently on 40 mg of methylprednisone -Further management as per the primary team Qualifiers: Ascites presence: without ascites Qualified Code(s): K70.10 - Alcoholic hepatitis without ascites - Time Spent With Patient Total time spent is greater than 50% in coordination of care (as documented) at patient's floor/unit and/or counseling patient: GI History of Present Illness - Data of Consult Requesting Physician: Trisha Valero - Consult Narrative History of present illness: Ms. Caldwell is a 53 year old female presented to the ER on 10/30 with concerns for confusion that has been going on for last week. Patient endorses that he went to a restaurant not too long ago and was feeling very tired and her daughter report that she was a little confused as well. That is when the she decided to go to the urgent care her her labs were drawn and found to have elevated liver enzymes AST: 327, ALT: 84, Al Phos: 130, with Hb at 11.1 Also has a history of alcohol abuse and no drinks a lot of wine each day. Initial workup in the ED showed that patient was significantly thrombocytopenc at 32, AST: 292, ALT: 78, Alk phos:131, ammonia : 57. Her alcohol level was 444 She also had mild anemia at 11, with an MCV : 89. Her liver ultrasound which showed cirrhotic liver potentially an underlying cirrhosis with no visualization of focal lesions. U/S also showed edematous gallbladder wall thickening most likely due to adjacent liver disease or systemic process such as hypoproteinemia. Owing to concerns for falls patient had a head CT which was as negative for any fracture, mass or any intracranial lesion. In the ER patient was alert and oriented, but had difficulty with [id number] testing are negative repetitive movements and [id number]-[id number] testing. She was admitted to the hospital with concerns for encephalopathy and thrombocytopenia. Past Med Surg Social Fam HX - Past Medical History Medical history: hypertension, other Additional medical history: anemia-iron deficiency Psychiatric history: no psych history - Past Surgical History Surgical History: other Additional surgical history: B CTR - Social History Smoking Status: Never smoker Smokeless Tobacco Status: No Alcohol use: occasionally Drug use: none - Constitutional Vitals: Temp Pulse Resp BP Pulse Ox 98.5 F 91 15 139/89 95 10/30/18 06:35 10/30/18 06:35 10/30/18 06:35 10/30/18 06:35 10/30/18 06:35 Results - Labs CBC & Chem 7: 10/30/18 03:22 10/30/18 03:22 Labs: Last Result 10/30/18 03:22 Calcium 8.4 L Entire Visit 10/30/18 10/30/18 10/30/18 03:22 03:22 03:22 Hgb 9.6 L Hct 31.0 L PT 27.7 H Total Bilirubin 6.3 H AST 286 H ALT 73 H - ABG ABG results: PT/INR, D-dimer PT 27.7 Seconds (9.4-12.1) H 10/30/18 03:22 Consult Discharge Plan - Plan Referrals: Omi Cartagena MD [Primary Care Provider] - <Judy Duckworth - Last Filed: 10/30/18 17:45> Date of Encounter: 10/30/18 Time of Encounter: 14:00 - Time Spent With Patient Total time spent is greater than 50% in coordination of care (as documented) at patient's floor/unit and/or counseling patient: GI History of Present Illness - Data of Consult Requesting Physician: Trisha Valero - Consult Narrative History of present illness: Ms. Caldwell is a 53 year old female - Constitutional Vitals: Temp Pulse Resp BP Pulse Ox 98.2 F 94 15 120/76 94 10/30/18 16:21 10/30/18 16:21 10/30/18 16:21 10/30/18 16:21 10/30/18 16:21 Results - Labs CBC & Chem 7: 10/30/18 03:22 10/30/18 03:22 - ABG ABG results: PT/INR, D-dimer PT 27.7 Seconds (9.4-12.1) H 10/30/18 03:22 - Attending Attestation I have personally performed a face to face evaluation on this patient. I have reviewed and agree with the care plan. History and Exam by me shows: Pt 53-year-old female with the history of alcoholism now admitted with the alcoholic liver disease. On examination: Abdomen is mildly distended but soft does has bruising on her body. Assessment: Patient will ALD liver disease/cirrhosis with elevated LFTs currently LFTs are increasing and her DF is 90. Recommendation: IV banana bag's, CIWA, IV steroid for alcoholic liver disease follow LFTs.
[2018-10-30] MEDS ORDERED: Thiamine (B-1) 100 MG TABLET PO SCH (09:00)
[2018-10-30] MEDS ORDERED: Multivit/Ca/Min/Fe/FA 1 TAB TABLET PO SCH (09:00)
[2018-10-30] MEDS ORDERED: Folic Acid 1 MG TABLET PO SCH (09:00)
[2018-10-30] MEDS: Lactulose Oral Soln 20 GM/30 ML UDC PO SCH (10:25)
[2018-10-30] MEDS: *HR* LORazepam 2 MG/ML VIAL IVP PRN ×2 (10:29→16:14)
[2018-10-30] MEDS ORDERED: methylPREDNISolone 125 MG/2 ML VIAL IVP SCH ×2 (11:32→16:00)
--- NOTE | 2018-10-30 12:02 | Discharge Summary ---
<Domo Bah - Last Filed: 10/30/18 12:34> - NOTES TO OUTPATIENT PROVIDER Notes to Outpatient Provider: presented initially with encephalopathy, however hepatic status worsened significantly and was transferred to [facility] for further workup and evaluation. Orders not resulted at time of discharge: Pending orders 10/28/18 04:06 Occult Blood,Stool [BF] Routine 10/28/18 04:53 Haptoglobin Routine 10/29/18 10:17 AFP Tumor Marker Non- Routine Date of Encounter: 10/30/18 Time of Encounter: 10:00 - Discharge Diagnosis (1) Alcoholic hepatic failure without coma Priority: Primary Status: Acute (2) Alcoholic hepatitis Priority: Secondary Status: Suspected Qualifiers: Ascites presence: without ascites Qualified Code(s): K70.10 - Alcoholic hepatitis without ascites (3) Alcohol withdrawal Priority: Secondary Status: Acute Qualifiers: Complication of substance-induced condition: with unspecified complication Qualified Code(s): F10.239 - Alcohol dependence with withdrawal, unspecified (4) Alcohol dependence Priority: Secondary Status: Chronic Qualifiers: Substance use status: in withdrawal Complication of substance-induced condition: with unspecified complication Qualified Code(s): F10.239 - Alcohol dependence with withdrawal, unspecified (5) Pancytopenia Priority: Secondary Status: Acute (6) Cirrhosis of liver Priority: Secondary Status: Chronic Qualifiers: Hepatic cirrhosis type: unspecified hepatic cirrhosis Ascites presence: without ascites Qualified Code(s): K74.60 - Unspecified cirrhosis of liver Hospital course: Dear Doctors, I recently had the opportunity to care for this patient during their recent hospital stay at [facility]. Mrs. Landeros is a 53-year-old woman with very minimal past medical history only including hypertension. The patient presented at the time of admission with acute confusion according to family members. She presented with her 2 reported acute changes in her mentation and confusion, noting that she was not speaking or acting normally. 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 On presentation to the hospital, the patient was found to be acutely encephalopathic. imaging workup of the head was unremarkable, however her labs did demonstrate transaminitis and a pancytopenia with significant thrombocytopenia. She did have a liver ultrasound that demonstrated cirrhotic changes of the liver likely secondary to chronic alcohol consumption. The patient was on a CIWA protocol for the duration of her stay, and did require a significant amount of Ativan to maintain free of withdrawal symptoms, however she did not improve at the expected rate. On her final day in the hospital, she had a significant increase in her bilirubin as well as her INR and other hepatic function labs, all of which suggested that her hepatic function is worsening rather than improving. she did continue to have some encephalopathy, however, unclear whether this is due to withdrawal symptoms versus hepatic encephalopathy. We also did consider whether or not there was a component of alcoholic hepatitis, and steroids were initiated. At this time, discussion was held between the patient and her family and a decision was made to transfer the patient [facility] for further care. Dx: alcoholic cirrhosis of the liver, alcohol dependence with withdrawal, hepatic encephalopathy, pancytopenia Pertinent tests/consults: platelets 36, INR 2.4, total bilirubin 6.3, AST 286, ALT 73, alkaline phosphatase 123. liver ultrasound demonstrated cirrhotic changes. viral hepatitis panel negative Tests pending: AFP pending Med changes: patient had no home medications Mental status: awake, fully oriented however does tend to say that it is 1920 rather than 2019. Had confusion overnight Code status: Full Code Time spent on discharge: 35 minutes It has been my pleasure participating in this patient's care. Please contact me with any questions or concerns regarding their hospital stay. Sincerely, Domo Bah, DO Discharge discussed with: patient, family, nurse, biometrics consultant, other - Time Spent with Patient Total time spent providing and/or coordinating discharge services: - Discharge Medications Prescriptions: New Ferrous Sulfate 325 mg PO DAILY tablet LORazepam [Ativan] 4 mg IVP Q4HR PRN vial PRN Reason: CIWA Score of 22-45 LORazepam [Ativan] 1 mg IVP Q1H PRN vial PRN Reason: Alcohol Withdrawal LORazepam [Ativan] 2 mg IVP Q4HR PRN vial PRN Reason: CIWA Score of 10-21 Lactulose 10 gm PO DAILY udc Ondansetron [Zofran] 4 mg IVP Q6HR PRN vial PRN Reason: nausea/vomiting methylPREDNISolone [Solu-MEDROL] 40 mg IVP DAILY vial Folic Acid 1 mg PO DAILY tablet Multivit/Ca/Min/Fe/FA [Thera M Plus] 1 tab PO DAILY tablet Thiamine (B-1) [Vitamin B-1] 100 mg PO DAILY tablet Home Medications: Ferrous Sulfate 325 mg PO DAILY tablet 10/30/18 [Rx] Folic Acid 1 mg PO DAILY tablet 10/30/18 [Rx] LORazepam [Ativan] 1 mg IVP Q1H PRN vial 10/30/18 [Rx] LORazepam [Ativan] 2 mg IVP Q4HR PRN vial 10/30/18 [Rx] LORazepam [Ativan] 4 mg IVP Q4HR PRN vial 10/30/18 [Rx] Lactulose 10 gm PO DAILY udc 10/30/18 [Rx] Multivit/Ca/Min/Fe/FA [Thera M Plus] 1 tab PO DAILY tablet 10/30/18 [Rx] Ondansetron [Zofran] 4 mg IVP Q6HR PRN vial 10/30/18 [Rx] Thiamine (B-1) [Vitamin B-1] 100 mg PO DAILY tablet 10/30/18 [Rx] methylPREDNISolone [Solu-MEDROL] 40 mg IVP DAILY vial 10/30/18 [Rx] Allergies/Adverse Reactions: Allergy/AdvReac Type Severity Reaction Status Date / Time No Known Allergies Allergy Verified 10/28/18 16:36 Date of admission: 10/29/18 16:27 Primary care physician: Omi Cartagena MD Consults: 10/28/18 03:26 Consult to Feed Crusher [CONS] Routine Reason for SW Consult: alcohol withdrawal. 10/29/18 07:37 Consult to Oncology [CONS] Routine Consulting Provider: [facility] Reason for Consult: pancytopenia, requiring plt transfusions for counts 20s- 30s; new etoh cirrhosis dx; please eval for treatment and work up recs Call Completed: Yes 10/29/18 07:43 Consult to Gastroenterology [CONS] Routine Consulting Provider: Gastroenterology Jen Reason for Consult: hepatitis, etoh, new dx cirrhosis, elevating LFTs; please eval for further treatment and work up recs Call Completed: No Discharging clinician: Domo Bah Anticipated date of discharge: 10/30/18 - Constitutional Vitals: Temp Pulse Resp BP Pulse Ox 99.0 F 105 20 124/72 95 10/30/18 10:51 10/30/18 11:34 10/30/18 10:51 10/30/18 11:34 10/30/18 10:51 Exam: Gen: Vitals noted. No acute distress. Eyes: anicteric sclerae, moist conjunctivae; no lid-lag; Pupils equal and reactive to light HENT: Atraumatic; oropharynx clear with moist mucous membranes and no mucosal ulcerations; normal hard and soft palate Neck: Trachea midline; supple, no thyromegaly or lymphadenopathy Cardiac: RRR, no murmur, +S1/S2 Pulmonary: CTA bilaterally, no wheezes, rales or rhonchi, equal chest expansion Abdomen: soft, nontender, no guarding. No masses or hepatosplenomegaly MSK: ROM intact, no joint swelling noted Extremities: no BLE edema, nontender calf, no cyanosis or clubbing Skin: Normal temperature, turgor and texture; no rash, ulcers or subcutaneous nodules Neuro: moves all extremities, no focal deficits. Psych: Appropriate mood and behavior. A&Ox3 however does makes the date up to 1919 rather than 2019. - Patient Status Disposition: Transfer Other Condition: Serious Functional capacity at discharge: independent ambulation Overall status at discharge: patient is not back to baseline - Discharge Instructions Follow Up With: Omi Cartagena MD [Primary Care Provider] - - Diet and Activity Activity: increase activity as tolerated Diet: advance to your usual diet <Trisha Valero - Last Filed: 10/30/18 13:51> Orders not resulted at time of discharge: Pending orders 10/28/18 04:06 Occult Blood,Stool [BF] Routine 10/28/18 04:53 Haptoglobin Routine 10/29/18 10:17 AFP Tumor Marker Non- Routine Date of Encounter: 10/30/18 - Discharge Diagnosis (1) Thrombocytopenia Status: Acute (2) Cirrhosis of liver without ascites Status: Acute (3) Alcohol intoxication Status: Resolved Qualifiers: Complication of substance-induced condition: uncomplicated Qualified Code(s): F10.920 - Alcohol use, unspecified with intoxication, uncomplicated (4) Pancytopenia Status: Acute Hospital course: Ms. Caldwell is a 53 year old female - Time Spent with Patient Total time spent providing and/or coordinating discharge services: Date of admission: 10/29/18 16:27 Primary care physician: Omi Cartagena MD Consults: 10/28/18 03:26 Consult to Feed Crusher [CONS] Routine Reason for SW Consult: alcohol withdrawal. 10/29/18 07:37 Consult to Oncology [CONS] Routine Consulting Provider: [facility] Reason for Consult: pancytopenia, requiring plt transfusions for counts 20s- 30s; new etoh cirrhosis dx; please eval for treatment and work up recs Call Completed: Yes 10/29/18 07:43 Consult to Gastroenterology [CONS] Routine Consulting Provider: Gastroenterology Jen Reason for Consult: hepatitis, etoh, new dx cirrhosis, elevating LFTs; please eval for further treatment and work up recs Call Completed: No - Constitutional Vitals: Temp Pulse Resp BP Pulse Ox 99.0 F 105 20 124/72 95 10/30/18 10:51 10/30/18 11:34 10/30/18 10:51 10/30/18 11:34 10/30/18 10:51 - Attending Attestation I examined this patient and my medical decision-making was reviewed with the Resident Physician Dr Bah. I agree with the documented findings, disposition and treatment plan as described except to the extent set forth below. Mrs Caldwell was admitted with etoh intoxication, pancytopenia, new dx liver cirrhosis and new revelation of etoh dependence. She developed etoh withdrawal this admission. She had worsening of hepatic function which prompted transfer to [facility] for hepat ology evaluation. awake in bed, tired with doses of ativan andmildly ocnfused in regards to date, otherwise she remains at her baseline. She admits to tremulousness, denies palpitations, n/v. No headache or vision changes, denies weakness, numbness/tingling. No abd pain, skin itching. gen- alert, awake,appears stated age eyes- pupils equal round, no scleral icterus cv- reg rate and reg rhythm, normal s1,s2, + SM, no le edema lungs- ctabl, normal resp effort on room air abd- soft, non tender, non distended, no appreciable HM skin- mild jaundice , no pallor, ecchymotic areas bl arms, no hematoma palpated at these sites neuro- AAOxperson, place, month but year 1919, CN grossly intact, BL UE tremors Acute Encephalopathy 2/2 Etoh Intoxication, which has now resolved Mild confusion overnight and in setting of etoh withdrawal with Ativan routinely in last 24 hrs + worsening liver funciton today, cannot discern if etoh w/d related v hepatic encephalopathy CT head negative on admit Thrombocytopenia, chronicity uk, suspected 2/2 liver disease Plt count 30s s/p plt transfusion x2 this admit -Heme saw her in consultation with rec to tranfuse if active blleding, need for procedure or drop to plt <20 -liver work up as below -fall precautions, up w assist only, had no mental status changes that warranted repeat imaging of head this admit Suspected Alcoholic Hepatitis Liver Cirrhosis without Coma Hepatitis panel non reactive Liver US w cirrhotic liver, possibly underlying cirrhosis, no focal lesions, gb wall thickened likely 2/2 liver disease or hypoproteinemia, no cholecystitis LFTs stable yesterday, uptrending today, INR now 2.4 and Tbili increase from 3.8 to 6.3 today -started lactulose (ammonia levels have been normal since admit), IV steroid -transfer for hepatology eval [facility] given worsening clinical picture Etoh Intoxication, resolved Now Etoh Withdrawal,now with mild confusion overnight as above Etoh Abuse v Dependence -CIWA and receiving ativan (12 mg administered 10/29), supplements, repleting lytes to goal daily prn New Systolic Heart murmur Echo normal EF and diastolic funciton, AV not well visualized, Mild aortic sclerosis by doppler Pancytopenia Normocytic Anemia, chronicity unknown Hgb stable in 9s since 10/28 -appreciate heme input, thombocytopenia tx as above, she has no active bleeding or s/s of unvisualized bleeding at this time -cont iron supp, foalte time spent on dc 50 min transfer to [facility] when bed available
[2018-10-30] MEDS ORDERED: MethylPREDNISolone 40 MG/ML VIAL IVP SCH (12:45)
[2018-10-30 19:29] VITALS: BP 125/69
== END 2018-10-30 23:43 | disposition other institution (70) | DRG 433 ==
LOC: EMEROOARM 19:54 → 3BNU 19:54 → SUATTDRO 23:39 → 3BNU 10-28 00:10
PROVIDERS: ADMIT Family Medicine; ATTEND Internal Medicine